=== PATIENT | female | born 2000 | race Caucasian/White ===

== ENCOUNTER → 2020-11-10 11:43 | Outpatient (CLI) | payer OTHER, SELFPAY ==
[2020-11-10 13:28] LABS: Hematocrit 36.9 % (37-47); Hemoglobin 12.4 g/dL (12.0-15.0); Mean Corp Hgb Conc 33.6 g/dL (32-36); Mean Corpuscular Hgb 30.8 pg (27.0-32.0); Mean Corpuscular Volume 91.8 fL (81-99); Mean Platelet Vol. 10.8 fl (6.2-12.0); Platelet Count 243 K/mm3 (150-450); RBC Distribution Width CV 12.8 % (11.6-14.6); RBC Distribution Width SD 42.8 fl (35.1-43.9); Red Blood Count 4.02 M/mm3 (4.2-5.4)
[2020-11-10 13:31] LABS: Glucose Challenge Gest 1H 50g 107 mg/dL (70-140)
== END ==
PROVIDERS: Visit Provider Student in an Organized Health Care Education/Training Program
DX: Z34.83 Encounter for supervision of other normal pregnancy, third trimester (principal)
CPT/HCPCS: 36415; 82950; 85027

== ENCOUNTER 2021-01-18 19:20 | Inpatient (IN) | payer OTHER, SELFPAY ==
[2021-01-18 19:47] VITALS: BMI 34.7
[2021-01-18 20:07] VITALS: TEMP 36.6
[2021-01-18 20:08] VITALS: BP 116/68; PULSE 109; PULSE 111; O2SAT 97
[2021-01-18 20:13] LABS: Absolute Lymphocyte Count 1.91 X10^3/uL (0.83-4.51); Absolute Neutrophil Count 6.2 X10^3/uL (2.0-7.7); Basophil# 0.01 X10^3/uL; Basophil% 0.1 % (0-1); Eosinophil# 0.03 X10^3/uL; Eosinophils% 0.3 % (0-5); Hematocrit 38.1 % (37-47); Hemoglobin 12.4 g/dL (12.0-15.0); Lymphocyte # 1.91 X10^3/ul (4.0); Lymphocyte % 21.6 % (19-41); Mean Corp Hgb Conc 32.5 g/dL (32-36); Mean Corpuscular Hgb 29.1 pg (27.0-32.0); Mean Corpuscular Volume 89.4 fL (81-99); Mean Platelet Vol. 10.4 fl (6.2-12.0); Monocyte# 0.64 X10^3/uL; Monocyte% 7.2 % (0-10); NRBC Flagged by Analyzer 0 % (0-5); Neutrophil % 70.2 % (47-70); Platelet Count 252 K/mm3 (150-450); RBC Distribution Width CV 12.9 % (11.6-14.6); RBC Distribution Width SD 41.9 fl (35.1-43.9); Red Blood Count 4.26 M/mm3 (4.2-5.4); White Blood Count 8.8 K/mm3 (4.4-11.0)
[2021-01-18] MEDS: Lactated Ringers 1,000 ML 50 ML IV (20:23)
[2021-01-18] MEDS: miSOPROStol 25 MCG TABLET VAGINAL (20:32)
[2021-01-18 21:04] VITALS: BP 102/53; PULSE 80
[2021-01-18 21:24] LABS: ROM Internal Control Test YES-OK TO RESULT pt. (Internal QC); ROM Patient Test Negative (Negative)
[2021-01-18 22:06] VITALS: BP 103/58; PULSE 81; TEMP 36.4; O2SAT 98
[2021-01-18 23:46] VITALS: BP 111/58; PULSE 71; TEMP 36.6
[2021-01-19] VITALS (43 sets, daily range): BP systolic 77–120; BP diastolic 40–70; PULSE 64–109; TEMP 36.3–37; O2SAT 89–100
[2021-01-19] MEDS: miSOPROStol 25 MCG TABLET VAGINAL (00:28)
[2021-01-19] MEDS: Lactated Ringers 500 ML 999 ML IV (04:24)
[2021-01-19] MEDS: Oxytocin 30 units/NS 500 ml 30 UNITS/500 ML IV.SOLN IV (06:56)
--- NOTE | 2021-01-19 07:12 | HP.PCM_ITS ---
History and Physical Date of Admission: 01/19/21 HPI: 20 yo at 39/5w, JUDY 01/21/21 by LMP, admitted for term induction of labor. Denies VB, contractions. +FM. This is complicated by: IBS (constipation), resolved IUGR, resolved choroid plexus cyst, two vessel cord Obstetrical History G1 Past Medical History IBS Medications PNV Past Surgical History Tonsillectomy Social History Tobacco use: denies Alcohol use: denies Illicit drug use: denies Labs Blood type: O pos Rubella: immune Hep B: neg HIV: neg RPR: nonreactive 1 hour GTT: wnl GBS: neg 12/31 Allergies NKDA Review of Systems General: alert and oriented HEENT: _denies change of vision Heart/lungs: _denies CP, SOB GI: _denies nausea, vomiting, dysuria, diarrhea MSK: _denies calf pain, tenderness Physical Exam Vital Signs Temp Pulse BP Pulse Ox 01/19/21 07:11 98.6 F 69 92/55 L 98 01/19/21 06:05 97.3 F L 84 107/68 01/19/21 06:04 73 97 01/19/21 05:59 77 96 01/19/21 05:54 76 96 01/19/21 05:49 100 96 01/19/21 05:44 73 97 01/19/21 05:35 72 97 01/19/21 05:30 81 97 01/19/21 05:25 68 98 01/19/21 05:20 73 98 01/19/21 05:15 75 97 01/19/21 05:10 76 98 01/19/21 05:05 74 98 01/19/21 05:00 68 98 01/19/21 04:55 80 98 01/19/21 04:50 75 97 01/19/21 04:45 91 97 01/19/21 04:40 78 97 01/19/21 04:35 77 98 01/19/21 04:32 78 120/59 L 01/19/21 04:30 109 H 98 01/19/21 04:25 68 98 01/19/21 01:32 64 98/49 L 01/18/21 23:46 97.8 F 71 111/58 L 01/18/21 22:06 97.5 F L 81 103/58 L 98 01/18/21 21:04 80 102/53 L 01/18/21 20:08 109 H 116/68 97 01/18/21 20:07 97.8 F General: a&o x3, NAD HEENT: normocephalic, atraumatic Cardio: no JVD Resp: no increased work in breathing Abdomen: soft, gravid, nontender Extremities: _minimal-moderate edema CE: cl/th/high FHT: 125/mod libertad/+accel/no decel [place]: irregular Labs Laboratory Results - last 24 hr 01/18/21 01/18/21 01/18/21 19:45 19:45 20:35 WBC 8.8 RBC 4.26 Hgb 12.4 Hct 38.1 MCV 89.4 MCH 29.1 MCHC 32.5 RDW Std Deviation 41.9 RDW Coeff of Libertad 12.9 Plt Count 252 MPV 10.4 Immature Gran % (Auto) 0.600 Neut % (Auto) 70.2 H Lymph % (Auto) 21.6 [place] % (Auto) 7.2 Eos % (Auto) 0.3 Baso % (Auto) 0.1 Absolute Neuts (auto) 6.2 Absolute Lymphs (auto) 1.91 Nucleated RBC % 0 Vag Amniotic Fld Detect Negative Blood Type O POSITIVE Antibody Screen NEGATIVE Assessment & Plan 20 yo at 39/5w, JUDY 01/21/21 by LMP, admitted for term induction of labor. This is complicated by: IBS (constipation), resolved IUGR, resolved choroid plexus cyst, two vessel cord Admit to L&D - Routine labor orders - Cytotec induction to start, transitioned to pitocin this morning due to contraction pattern - GBS neg - CEFM - Anesthesia to see - Cephalic position confirmed by BSUS this morning
[2021-01-19] MEDS: Lactated Ringers 1,000 ML 200 ML IV (07:37)
--- NOTE | 2021-01-19 18:13 | PCM.PN.BLA ---
Progress Note Pt seen and evaluated. Eating dinner with . Per RN last CE was 2 cm. FHR category I - 130/mod rozina/+accel/no decel, lore[place] q3. Patient is emotionally exhausted from induction being almost 24 hours. She asks about being able to go home and return next week for induction. Reports painful contractions and not being comfortable. Discussed that inductions can last several days, as discussed in the office previously, and that labor can be a long and painful process. Patient made aware that she is able to get an epidural at any time if she desired. Patient in latent labor at this time. Emphasized to patient that she has had made good progress over the last day. complicated by resolved growth restriction and two-vessel cord. Baby has tolerated labor well thus far. Long discussion had that the labor progress can be unpredictable and unknown how much longer she will be in labor before delivery. Discussed that there is no indication for section at this time unless she desired it. It is possible that she go home tonight and continue to labor on her own or that alternatively she return next week for induction at 2 cm without any cervical change. As heart tracing has been category 1 it is reasonable for patient to go home and return for induction next week. It is also reasonable to continue labor at this time. All questions answered. She and her will discuss and give decision after they are done eating. Okay for patient to shower. Will monitor for 4 hours without Pitocin prior to discharge if that is what she desires. Discussed with bedside RN as well. STROKE Vital Signs/Narrative: Vital Signs Temp Pulse BP Pulse Ox 01/19/21 17:46 68 101/57 L 01/19/21 16:46 76 112/62 01/19/21 15:27 97.7 F L 77 102/56 L 97
[2021-01-20] VITALS (79 sets, daily range): BP systolic 75–127; BP diastolic 39–79; PULSE 62–133; RESP 16–19; TEMP 36.2–37.2; O2SAT 95–100
[2021-01-20] MEDS: Lactated Ringers 500 ML 999 ML IV ×4 (00:20→04:31)
[2021-01-20] MEDS: fentaNYL-bupivacaine (epidural) 100 ML BAG EPIDURAL ×2 (01:12→05:57)
[2021-01-20] MEDS: Lactated Ringers 1,000 ML 200 ML IV (02:03)
--- NOTE | 2021-01-20 12:02 | OP.PCM_ITS ---
Vaginal Delivery Date of Procedure: 01/20/21 Pre-Operative Diagnosis: Term Post-Operative Diagnosis: Term Surgery/ Procedure Performed: Spontaneous Vaginal Delivery Type of Anesthesia: Epidural Description of Procedure: Normal spontaneous vaginal delivery of a viable male infant, vertex ELSY. Head and shoulders look with ease. Cord cut and clamped. Baby handed off to nursing. Placenta delivered via cord traction and fundal massage. Second- degree midline perineal laceration and right periurethral laceration noted and repaired in typical fashion. EBL 300 cc Apgars 9/9
--- NOTE | 2021-01-20 12:04 | DCINST_ITS ---
Discharge Diet: No Restrictions Discharge Activity: Return to Normal Activity, No Restrictions, May Drive, May Shower May resume sexual activity in: 4-6 weeks Weight Bearing Status: Weight bearing as tolerated Call your doctor if your incision/area has: Continuous Slow Oozing, Foul Smelling Discharge Call your doctor if you observe: Fever of 101 or Higher, Shortness of breath, Chest pain Additional Instructions: If you experience any of the following, contact your healthcare provider. * Bleeding that soaks a pad every hour for 2 hours * Fever 100.4 or higher * Unrelieved incision or abdominal pain * Swelling, redness, discharge or bleeding from your incision or episiotomy site * Your incision begins to separate * Problems urinating (including inability to urinate or burning while urinating). * Visual changes * Severe headache * Flu-like symptoms * Pain or redness in one of both of your breasts * Pain, warmth, tenderness or swelling in your legs, especially the calf area * Frequent nausea and vomiting * Symptoms of depression or anxiety If you experience any of the following, call 911 or go to the nearest Emergency Room. * Chest pain * Problems breathing * Seizure activity * Partial or complete paralysis of a body part, slurred speech, weakness or drooping of the face, or a sudden inability to walk or hold your balance Allergies/Adverse Reactions: Allergies No Known Allergies Allergy (Verified 01/18/21 19:51) Medications to take at Discharge Mv-Mn/Iron/FA/Herbal/Digestive [ One Tablet] 1 tablet PO DAILY 01/18/21 Please Follow Up With: Fela Li DO When: 4 to 6 weeks Test Results: Test results from this visit will be discussed in further detail at your follow- up appointment, if applicable.
--- NOTE | 2021-01-20 12:04 | PCM.DCVAG ---
Discharge Diet: No Restrictions Discharge Activity: Return to Normal Activity, No Restrictions, May Drive, May Shower May resume sexual activity in: 4-6 weeks Weight Bearing Status: Weight bearing as tolerated Call your doctor if your incision/area has: Continuous Slow Oozing, Foul Smelling Discharge Call your doctor if you observe: Fever of 101 or Higher, Shortness of breath, Chest pain Additional Instructions: If you experience any of the following, contact your healthcare provider. Bleeding that soaks a pad every hour for 2 hours Fever 100.4 or higher Unrelieved incision or abdominal pain Swelling, redness, discharge or bleeding from your incision or episiotomy site Your incision begins to separate Problems urinating (including inability to urinate or burning while urinating). Visual changes Severe headache Flu-like symptoms Pain or redness in one of both of your breasts Pain, warmth, tenderness or swelling in your legs, especially the calf area Frequent nausea and vomiting Symptoms of depression or anxiety If you experience any of the following, call 911 or go to the nearest Emergency Room. Chest pain Problems breathing Seizure activity Partial or complete paralysis of a body part, slurred speech, weakness or drooping of the face, or a sudden inability to walk or hold your balance Allergies/Adverse Reactions: Allergies No Known Allergies Allergy (Verified 01/18/21 19:51) Medications to take at Discharge Mv-Mn/Iron/FA/Herbal/Digestive [ One Tablet] 1 tablet PO DAILY 01/18/21 Please Follow Up With: Fela Li DO When: 4 to 6 weeks Test Results: Test results from this visit will be discussed in further detail at your follow-up appointment, if applicable.
[2021-01-20] MEDS: Ibuprofen 600 MG Tablet PO (13:15)
[2021-01-20] MEDS: Acetaminophen 500 MG Tablet 1000 MG PO (21:38)
[2021-01-21 00:08] VITALS: BP 99/58; PULSE 91; RESP 18; O2SAT 96
[2021-01-21] MEDS: Ibuprofen 600 MG Tablet PO (00:11)
[2021-01-21 03:56] VITALS: BP 97/45; PULSE 65; RESP 16
[2021-01-21] MEDS: Acetaminophen 500 MG Tablet 1000 MG PO (04:24)
[2021-01-21] MEDS: oxyCODONE 5 MG Tablet PO (04:46)
[2021-01-21 07:55] VITALS: BP 107/54; PULSE 79; RESP 18; TEMP 36.1
--- NOTE | 2021-01-21 09:00 | PCM.PN.OB ---
Subjective: Patient without complaints. Minimal vaginal bleeding reported today. Wants to go home if baby is able to go. - Physical Exam Vitals/I&O's: Vital Signs Temp Pulse Resp BP Pulse Ox 98.4 F 65 16 97/45 L 96 01/20/21 21:40 01/21/21 03:56 01/21/21 03:56 01/21/21 03:56 01/21/21 00:08 Oxygen Delivery Method Room Air Weight: 201 lb 15.095 oz Body Mass Index (BMI) 34.7 Intake and Output for Last 24 Hours 01/19/21 01/20/21 01/21/21 23:59 23:59 23:59 Intake Total 3065.97 / 3065.97 4007.44 / 4007.44 Output Total 2300 / 2300 2500 / 2500 Balance 765.97 / 765.97 1507.44 / 1507.44 Current Medications Acetaminophen (Acetaminophen 500 Mg Tablet) 1,000 mg PO Q8H PRN PRN PRN Reason: Pain Score 1-3 Last Admin: 01/21/21 04:24 Dose: 1,000 mg Documented by: Bisacodyl (Bisacodyl 10 Mg Suppository) 10 mg RC UD PRN PRN Reason: If no BM Dibucaine (Dibucaine 30 Gm Tube) 1 applic TOPICAL TID PRN PRN; Protocol PRN Reason: Discomfort Hydrocortisone (Hydrocortisone 2.5% Crm) 1 applic TOPICAL TID PRN PRN; Protocol PRN Reason: Discomfort Ibuprofen (Ibuprofen 600 Mg Tablet) 600 mg PO Q6H PRN PRN PRN Reason: Pain Score 1-3 Last Admin: 01/21/21 00:11 Dose: 600 mg Documented by: Ondansetron HCl (Ondansetron 4 Mg/2 Ml Vial) 4 mg IV Q4H PRN PRN PRN Reason: Nausea Senna/Docusate Sodium (Senna/Docusate Sodium 1 Tablet) 1 - 2 tablet PO DAILY PRN PRN PRN Reason: Constipation Simethicone (Simethicone 80 Mg Tablet) 80 mg PO PCHS PRN PRN Reason: Indigestion/Stomach pain Sodium Chloride (0.9% Saline Lock 10 Ml Syringe) 5 - 15 ml IV UD PRN PRN Reason: SALINE FLUSH Zolpidem Tartrate (Zolpidem Tartrate 5 Mg Tablet) 5 mg PO QHS PRN PRN PRN Reason: Insomnia Medical Necessity - Tobacco Use Smoking Status: Never smoker Assessment/Plan Doing well day #1 status post routine spontaneous vaginal delivery. Will discharge to home if baby is able to go.
[2021-01-21 14:00] VITALS: BP 108/60; PULSE 77; RESP 16; TEMP 36.2
== END 2021-01-21 16:45 | disposition home or self-care (01) | DRG 807 ==
PROVIDERS: Student in an Organized Health Care Education/Training Program; Admitting Provider Obstetrics & Gynecology; Visit Provider Obstetrics & Gynecology
DX: O99.62 Diseases of the digestive system complicating childbirth (principal); Z37.0 Single live birth; K58.1 Irritable bowel syndrome with constipation; O70.1 Second degree perineal laceration during delivery; O71.82 Other specified trauma to perineum and vulva; Z3A.39 39 weeks gestation of pregnancy
CPT/HCPCS: 59025; 59050; 84112; 85025; 86850; 86900; 86901; 99218; J7120; G0378

== ENCOUNTER → 2021-05-11 14:18 | Outpatient (CLI) | payer OTHER, SELFPAY ==
[2021-05-11 15:26] LABS: hCG Titer Quant., Serum < 1 mIU/mL (1-3)
== END ==
PROVIDERS: Visit Provider Obstetrics & Gynecology
DX: N91.2 Amenorrhea, unspecified (principal)
CPT/HCPCS: 36415; 84702

== ENCOUNTER 2021-11-27 11:59 | Outpatient (CLI) | payer OTHER, SELFPAY ==
[2021-11-27 12:31] LABS: Absolute Lymphocyte Count 2.27 X10^3/uL (0.83-4.51); Absolute Neutrophil Count 5.9 X10^3/uL (2.0-7.7); Basophil# 0.03 X10^3/uL; Basophil% 0.3 % (0-1); Eosinophil# 0.04 X10^3/uL; Eosinophils% 0.5 % (0-5); Hematocrit 44.8 % (37-47); Hemoglobin 15.6 g/dL (12.0-15.0); Lymphocyte # 2.27 X10^3/ul (0.83-4.51); Lymphocyte % 26.1 % (19-41); Mean Corp Hgb Conc 34.8 g/dL (32-36); Mean Corpuscular Hgb 30.5 pg (27.0-32.0); Mean Corpuscular Volume 87.7 fL (81-99); Monocyte# 0.45 X10^3/uL; Monocyte% 5.2 % (0-10); NRBC Flagged by Analyzer 0 % (0-5); Neutrophil # 5.86 X10^3/uL (2.7-7.7); Neutrophil % 67.4 % (47-70); POSITIVE COUNT YES; Platelet Count 228 K/mm3 (150-450); RBC Distribution Width CV 12.9 % (11.6-14.6); RBC Distribution Width SD 41.7 fl (35.1-43.9); Red Blood Count 5.11 M/mm3 (4.2-5.4); White Blood Count 8.7 K/mm3 (4.4-11.0)
[2021-11-27 13:29] LABS: HIV - WCH Non-Reactive (Nonreactive); Hepatitis B Surface Antigen Non-Reactive (Nonreactive); Hepatitis C Antibody Non-Reactive (Nonreactive); Rubella IgG Reactive (Nonreactive); Syphilis Antibodies Non-reactive
[2021-12-01 17:01] LABS: HPV Reflexed? NOT INDICATED
== END 2021-11-27 23:59 | disposition home or self-care (01) ==
PROVIDERS: Visit Provider Student in an Organized Health Care Education/Training Program
DX: O23.599 Infection of other part of genital tract in pregnancy, unspecified trimester (principal); N77.1 Vaginitis, vulvitis and vulvovaginitis in diseases classified elsewhere
CPT/HCPCS: 36415; 85025; 86703; 86762; 86780; 86803; 87086; 87088; 87340; 88175; G0145

== ENCOUNTER 2022-01-26 15:17 | Outpatient (CLI) | payer OTHER, BC, SELFPAY ==
[2022-01-26 16:21] LABS: Glucose Challenge Gest 1H 50g 116 mg/dL (70-140)
== END 2022-01-26 23:59 | disposition home or self-care (01) ==
PROVIDERS: Visit Provider Student in an Organized Health Care Education/Training Program
DX: Z34.81 Encounter for supervision of other normal pregnancy, first trimester (principal)
CPT/HCPCS: 36415; 82950

== ENCOUNTER → 2022-02-15 | Outpatient (CLI) | payer BC, OTHER, SELFPAY | END | disposition home or self-care (01) | PROVIDERS: Visit Provider Student in an Organized Health Care Education/Training Program | DX: Z34.82 Encounter for supervision of other normal pregnancy, second trimester (principal); O99.891 Other specified diseases and conditions complicating pregnancy; N77.1 Vaginitis, vulvitis and vulvovaginitis in diseases classified elsewhere ==

== ENCOUNTER → 2022-04-29 | Outpatient (CLI) | payer BC, OTHER, SELFPAY ==
[2022-04-29 12:52] LABS: Hematocrit 38.4 % (37-47); Hemoglobin 12.6 g/dL (12.0-15.0); Mean Corp Hgb Conc 32.8 g/dL (32-36); Mean Corpuscular Hgb 30.5 pg (27.0-32.0); Mean Platelet Vol. 11.7 fl (6.2-12.0); Platelet Count 199 K/mm3 (150-450); RBC Distribution Width CV 13.1 % (11.6-14.6); RBC Distribution Width SD 44.8 fl (35.1-43.9); Red Blood Count 4.13 M/mm3 (4.2-5.4)
[2022-04-29 13:01] LABS: Glucose Challenge Gest 1H 50g 85 mg/dL (70-140)
== END | disposition home or self-care (01) ==
PROVIDERS: Visit Provider Student in an Organized Health Care Education/Training Program
DX: Z34.83 Encounter for supervision of other normal pregnancy, third trimester (principal); Z3A.00 Weeks of gestation of pregnancy not specified
CPT/HCPCS: 36415; 82950; 85027

== ENCOUNTER → 2022-05-13 | Outpatient (CLI) | payer BC, OTHER, SELFPAY ==
[2022-05-13 14:31] LABS: Hematocrit 37.8 % (37-47); Hemoglobin 13.2 g/dL (12.0-15.0); Mean Corp Hgb Conc 34.9 g/dL (32-36); Mean Corpuscular Hgb 31.4 pg (27.0-32.0); Mean Corpuscular Volume 89.8 fL (81-99); Mean Platelet Vol. 10.2 fl (6.2-12.0); Platelet Count 231 K/mm3 (150-450); RBC Distribution Width CV 12.7 % (11.6-14.6); RBC Distribution Width SD 41.5 fl (35.1-43.9); Red Blood Count 4.21 M/mm3 (4.2-5.4); White Blood Count 9.1 K/mm3 (4.4-11.0)
[2022-05-13 17:08] LABS: ALB/GLOB Ratio 0.7 RATIO (0.9-2.4); AST(SGOT) 15 U/L (15-37); Alanine Aminotransfer ALT/SGPT 17 U/L (13-56); Albumin, Serum 2.9 g/dL (3.2-5.0); Alkaline Phosphatase 99 U/L (45-117); Anion Gap 6 (5-15); BUN 7 mg/dL (7-18); BUN/Creat Ratio 11.9 RATIO (10-20); Calcium,Total 8.7 mg/dL (8.5-10.1); Chloride 105 mmol/L (98-107); Creatinine, Serum 0.59 mg/dL (0.55-1.02); EST Glomerular Filtration Rate 137 mL/min (>60); Est Glom Filt Rate - Afr Amer 165 mL/min (>60); Globulin 3.9 g/dL (2.2-4.2); Glucose 79 mg/dL (74-106); Lipase 173 U/L (73-393); Potassium 3.9 mmol/L (3.5-5.1); Protein, Total 6.8 g/dL (6.4-8.2); Sodium Level 136 mmol/L (136-145)
== END | disposition home or self-care (01) ==
LOC: WOBLAB 14:19
PROVIDERS: Visit Provider Student in an Organized Health Care Education/Training Program
DX: R10.9 Unspecified abdominal pain (principal)
CPT/HCPCS: 36415; 80053; 83690; 85027

== ENCOUNTER → 2022-07-02 | Outpatient (CLI) | payer BC, OTHER, SELFPAY ==
[2022-07-02 15:41] LABS: Absolute Lymphocyte Count 1.98 X10^3/uL (0.83-4.51); Absolute Neutrophil Count 7.4 X10^3/uL (2.0-7.7); Basophil# 0.03 X10^3/uL; Basophil% 0.3 % (0-1); Eosinophil# 0.04 X10^3/uL; Eosinophils% 0.4 % (0-5); Hemoglobin 12.5 g/dL (12.0-15.0); Lymphocyte # 1.98 X10^3/ul (0.83-4.51); Lymphocyte % 19.1 % (19-41); Mean Corp Hgb Conc 33.8 g/dL (32-36); Mean Corpuscular Hgb 30.2 pg (27.0-32.0); Mean Corpuscular Volume 89.4 fL (81-99); Mean Platelet Vol. 10.1 fl (6.2-12.0); Monocyte# 0.78 X10^3/uL; Monocyte% 7.5 % (0-10); NRBC Flagged by Analyzer 0 % (0-5); Neutrophil # 7.44 X10^3/uL (2.7-7.7); Platelet Count 215 K/mm3 (150-450); RBC Distribution Width CV 12.7 % (11.6-14.6); RBC Distribution Width SD 41.4 fl (35.1-43.9); Red Blood Count 4.14 M/mm3 (4.2-5.4); White Blood Count 10.3 K/mm3 (4.4-11.0)
[2022-07-02 15:55] LABS: Creatinine, Urine (random) < 13.00 mg/dL (NO RANGE EST.); Protein, Urine (Random) < 6.0 mg/dL (<11.9)
[2022-07-02 15:57] LABS: ALB/GLOB Ratio 0.6 RATIO (0.9-2.4); AST(SGOT) 12 U/L (15-37); Alanine Aminotransfer ALT/SGPT 15 U/L (13-56); Albumin, Serum 2.6 g/dL (3.2-5.0); Alkaline Phosphatase 169 U/L (45-117); Anion Gap 8 (5-15); BUN 8 mg/dL (7-18); Calcium,Total 8.6 mg/dL (8.5-10.1); Chloride 107 mmol/L (98-107); Creatinine, Serum 0.67 mg/dL (0.55-1.02); EST Glomerular Filtration Rate 118 mL/min (>60); Est Glom Filt Rate - Afr Amer 143 mL/min (>60); Glucose 107 mg/dL (74-106); LDH 162 U/L (84-246); Potassium 3.7 mmol/L (3.5-5.1); Protein, Total 6.6 g/dL (6.4-8.2); Sodium Level 138 mmol/L (136-145)
== END | disposition home or self-care (01) ==
LOC: WOBLAB 15:20
PROVIDERS: Visit Provider Student in an Organized Health Care Education/Training Program
DX: R10.11 Right upper quadrant pain (principal)
CPT/HCPCS: 36415; 80053; 82570; 83615; 84156; 85025; 87081; 87086; 87088

== ENCOUNTER 2022-07-09 16:10 | Outpatient (CLI) | payer BC, OTHER, SELFPAY ==
[2022-07-09 16:41] VITALS: BP 120/67; PULSE 73; PULSE 77; TEMP 36.3; O2SAT 98
[2022-07-09 16:43] VITALS: BMI 36.8
[2022-07-09] MEDS: Lactated Ringers 1,000 ML 999 ML IV (17:40)
[2022-07-09 18:31] VITALS: PULSE 99; O2SAT 100
[2022-07-09 18:32] VITALS: BP 112/73; PULSE 82; TEMP 36.5
--- NOTE | 2022-07-09 18:52 | NURSING ---
Pt lives 3 hours from hospital, encouraged by provider to stay closer tonight if pt uneasy about going home. Pt plans to stay in [place] at in laws house.
--- NOTE | 2022-07-10 09:35 | PN_ITS ---
Progress Note 21-year-old G2, P1 at 37/6 weeks presenting for decreased movement for extended monitoring. Patient had been seen in office prior reported decreased movement for 1 week. Still having some movements but decreased. Had BPP in the office which was 8 out of 8. Patient anxious therefore sent to labor and delivery for extended monitoring. Patient received 1 L LR bolus during monitoring. Per RN, RN felt movement as did patient during monitoring. monitoring reassuring with reactive NST. 120/moderate variability/positive accelerations/no decelerations. [place] irregular. Patient did have some menstrual cramps like discomfort rating 1 out of 10. She was 3 cm dilated in office. Patient lives 3 hours from hospital. Recommended staying in town or closer to hospital for the next 1 to 2 days. To return for decreased movement, more consistent contractions, increasing in strength, leaking of fluid. Kick counts reviewed. Patient has term induction of labor scheduled on 08/15. She has twice-weekly testing scheduled next week with NST on Tuesday and a BPP on . Discharge home.
== END 2022-07-09 18:55 | disposition home or self-care (01) ==
LOC: WPOUT 16:20 → WP 16:30
PROVIDERS: Visit Provider Student in an Organized Health Care Education/Training Program
DX: O36.8130 Decreased fetal movements, third trimester, not applicable or unspecified (principal); Z3A.37 37 weeks gestation of pregnancy
CPT/HCPCS: 96360; 59025; 59050; 99218; J7120; G0378

== ENCOUNTER 2022-07-11 17:00 | Inpatient (IN) | payer BC, OTHER, SELFPAY ==
[2022-07-11] VITALS (38 sets, daily range): BP systolic 86–130; BP diastolic 50–80; PULSE 67–125; TEMP 36.1–36.9; O2SAT 95–100; BMI 37.0
[2022-07-11] MEDS: Lactated Ringers 1,000 ML 200 ML IV ×2 (17:15→22:53)
[2022-07-11 17:29] LABS: Absolute Lymphocyte Count 2.81 X10^3/uL (0.83-4.51); Absolute Neutrophil Count 5.4 X10^3/uL (2.0-7.7); Basophil# 0.02 X10^3/uL; Basophil% 0.2 % (0-1); Eosinophil# 0.04 X10^3/uL; Eosinophils% 0.5 % (0-5); Hematocrit 35.9 % (37-47); Hemoglobin 11.9 g/dL (12.0-15.0); Lymphocyte # 2.81 X10^3/ul (0.83-4.51); Lymphocyte % 31.8 % (19-41); Mean Corp Hgb Conc 33.1 g/dL (32-36); Mean Corpuscular Hgb 29.3 pg (27.0-32.0); Mean Corpuscular Volume 88.4 fL (81-99); Mean Platelet Vol. 10.7 fl (6.2-12.0); Monocyte# 0.53 X10^3/uL; NRBC Flagged by Analyzer 0 % (0-5); Platelet Count 230 K/mm3 (150-450); RBC Distribution Width CV 12.6 % (11.6-14.6); RBC Distribution Width SD 40.9 fl (35.1-43.9); Red Blood Count 4.06 M/mm3 (4.2-5.4); White Blood Count 8.8 K/mm3 (4.4-11.0)
[2022-07-11] MEDS: Oxytocin 30 units/NS 500 ml 30 UNITS/500 ML IV.SOLN IV (17:34)
--- NOTE | 2022-07-11 20:05 | HP.PCM.OB_ITS ---
History and Physical Date of Admission: 07/11/22 HPI: 21 yo at 38/1w, JUDY 07/24/2022 by first trimester ultrasound, admitted for induction of labor. Reports decreased movement for 1 week, acute change. Does feel approximately once daily in the evening. Had reassuring testing on Tuesday of this week. Today presented with same complaint, no change. NST with accelerations, large periods of minimal variability, no decelerations. Patient did make cervical change to 4 cm from 3 cm on Tuesday. Denies leaking of fluid, vaginal bleeding. Reports contractions. Denies headache, vision changes, chest pain or shortness of breath, fevers or chills, nausea or vomiting, diarrhea constipation. uncomplicated. EFW on 06/10/22: 2670g (87.6%tile) [employer] history: G1: 2020 40-week , resolved growth restriction G2: Current Medical history: Denies Surgical history: Denies Family history: Denies history of VTE, bleeding disorders Allergies: No known drug allergies Social history: Denies tobacco, alcohol, drug use Review of system: Negative otherwise stated above Physical exam: BP 105/57, heart rate 67, temp 98.2 ?F General: No acute distress HEENT: Normocephalic/atraumatic, PERRLA Cardiorespiratory: No increased effort Abdomen: Soft, nontender, Gravid extremity: Minimal edema Neurologic: Cranial nerves II through XII grossly intact, no focal deficits Musculoskeletal: Strength 5 out of 5 throughout all extremities Cervical exam: 4 cm per RN on admission, AROM large amount of clear fluid 4/60/- 2 heart rate: 115/min rozina/+accel/no decel [place]: q3-5 panel O+ GBS negative on 07/02 Syphilis negative HIV negative Hepatitis C/hepatitis B negative Gonorrhea/chlamydia negative Assessment/plan: 21-year-old G2, P1 at 38/1 weeks, admitted for induction of labor for nonreassuring heart tones. ?Patient is early term with new onset decreased movement for 1 week. heart rate tracing noting accelerations and no decelerations, however notable for extended periods of minimal variability. Additionally patient did make cervical change from 3 to 4 cm. Based on these factors decision for induction of labor at early term was made. Risks and benefits discussed with the patient. Risks include but are not limited to: Possible NICU stay, difficulty with glucose regulation for baby. Patient agrees to induction of labor. All questions answered. Patient in room with partner. ?Induction with Pitocin and AROM. GBS is negative.
[2022-07-11] MEDS: LACTATED RINGERS 500 ML 999 ML IV ×2 (22:22→23:29)
[2022-07-11] MEDS: fentaNYL-bupivacaine (epidural) 100 ML BAG EPIDURAL (23:14)
[2022-07-12] VITALS (40 sets, daily range): BP systolic 85–111; BP diastolic 40–72; PULSE 56–106; RESP 16–20; TEMP 36–37.2; O2SAT 93–100
[2022-07-12] MEDS: LACTATED RINGERS 500 ML 999 ML IV ×2 (00:26→01:53)
[2022-07-12] MEDS: Mag Hydrox/Al Hydrox/Simeth 30 ML UDC PO (01:18)
[2022-07-12] MEDS: Ondansetron 4 MG/2 ML Vial IV (02:53)
[2022-07-12] MEDS: Amnioinfusion- 0.9% NS 1,000 ML IV.SOLN. INTRA-UTER (03:05)
[2022-07-12] MEDS: fentaNYL-bupivacaine (epidural) 100 ML BAG EPIDURAL (03:20)
[2022-07-12] MEDS: Sodium Citrate/Citric Acid 30 ML UDC PO (04:21)
[2022-07-12] MEDS: Acetaminophen 500 MG Tablet PO (04:22)
--- NOTE | 2022-07-12 04:26 | PN.OBGYN_ITS ---
Subjective Subjective Patient seen and evaluated. Comfortable with epidural. Having emesis. Objective Data Objective Data Vital Signs: Vital Signs Temp Pulse Resp BP Pulse Ox O2 Del Method 98.6 F 102 H 18 90/49 L 99 Room Air 07/12/22 04:16 07/12/22 04:16 07/12/22 04:16 07/12/22 04:16 07/12/22 04:16 07/12/22 04:16 Oxygen Delivery Method Room Air Weight: 97.9 kg Body Mass Index (BMI) 37.0 Intake & Output: Intake and Output for Last 24 Hours 07/10/22 07/11/22 07/12/22 23:59 23:59 23:59 Intake Total 1646.57 / 2146.57 1814.89 / 1814.89 Output Total 1200 / 1200 1190 / 1190 Balance 446.57 / 946.57 624.89 / 624.89 Lab / Micro Data Result Diagrams: 07/11/22 17:15 Labs: Laboratory Results - last 24 hr 07/11/22 17:15: WBC 8.8, RBC 4.06 L, Hgb 11.9 L, Hct 35.9 L, MCV 88.4, MCH 29.3, MCHC 33.1, RDW Std Deviation 40.9, RDW Coeff of Libertad 12.6, Plt Count 230, MPV 10.7, Immature Gran % (Auto) 0.500, Neut % (Auto) 61.0, Lymph % (Auto) 31.8, [place] % (Auto) 6.0, Eos % (Auto) 0.5, Baso % (Auto) 0.2, Absolute Neuts (auto) 5.4, Absolute Lymphs (auto) 2.81, Nucleated RBC % 0 07/11/22 17:15: Blood Type O POSITIVE, Antibody Screen NEGATIVE Micro: Microbiology 07/11/22 17:10 Nasal Secretion SARS-CoV-2 Antigen (Rapid) - Final Physical Exam Const alert, oriented x3 and no apparent distress Resp normal respiratory effort Cardio regular rate GI soft to palpation and non-tender Inspection: gravid Narrative: 4-5/70/-2 Extremity no pedal edema Psych mental status grossly normal NST FHR Rate Baby A Baseline: 110 Variability:: Minimal Accelerations:: 15 x 15 Decelerations:: Late Assessment & Plan (1) intolerance to labor, delivered, current hospitalization: PLAN: G2, P1 at 38/2 weeks.Patient had minimal variability with late decelerations, response to scalp stimulation. Pitocin had been stopped and amnioinfusion had been started. Following amnioinfusion variability improved for approximately 10 minutes, followed by minimal variability. Patient had accelerations with improved moderate variability at around 0400, response to scalp stimulation. Minimal change in cervical exam. Discussed options at that time for continued trial of labor as variability had been improved versus section. Discussed that if baby did not tolerate restarting Pitocin, this would likely require section at that time. Patient elects for section. All risk, benefits, alternatives were discussed with the patient. Risks include but are not limited to: Risk of bleeding to the point of transfusion, infection, injury to surrounding tissue including bowel/bladder (requiring prolonged Leiva catheter use), VTE, ICU admission. Patient aware and consented. All questions answered. 2 g Ancef and 500 mg azithromycin preoperatively. Proceed in an urgent, nonemergent fashion. (2) Delivery by section:
[2022-07-12] MEDS: Cefazolin 2 GM in 0.9% Normal Saline 100 ML IV (04:30)
--- NOTE | 2022-07-12 05:14 | EX.PCM.OBRPT ---
Details Operative Information Date of Procedure: 07/12/22 Pre-Operative Diagnosis: Agarwal intrauterine . intolerance of labor. Post-Operative Diagnosis: Agarwal intrauterine . intolerance of labor. Indications Narrative: 21-year-old G2, P1 at 38/2 weeks plan for primary section for intolerance of labor. All risk, benefits, alternative discussed with the patient. Risk include but not limited to: Risk of bleeding twin transfusion, infection, injury to surrounding tissue including bowel/bladder (potentially requiring prolonged Leiva catheter use), VTE, ICU admission. Patient were consented. Classification: KERRI Procedure Type: low transverse Type of Anesthesia: Epidural Estimated Blood Loss: 700 cc Fluids Replaced: 1000 cc Findings Description of Procedure: Procedure: Patient taken to the operating room and epidural anesthesia dose. Patient placed in the supine position with a left lateral tilt. Prepped and draped in the usual sterile fashion. Pfannenstiel skin incision made with scalpel, carried through underlying subcutaneous tissue. Fascia nicked on either side of the midline and extended bilaterally with Boykin scissors. Murali clamps placed at the superior fascial edge which was tented up and underlying rectus muscles were dissected off bluntly and sharply at midline using Boykin scissors. Murali clamps moved to inferior fascial edge which was tented up underlying rectus ulcers were dissected off bluntly and sharply at midline. Hemostats used to separate rectus muscle superiorly, peritoneum grasped and incised with Metzenbaum scissors. Peritoneum extended bluntly. Bladder blade placed vesicouterine peritoneum identified. Low transverse uterine incision made with scalpel and extended bluntly. Hand placed into the uterine cavity and head elevated to the level of the hysterotomy. Bladder blade removed. Head delivered followed by the body with the use of gentle fundal pressure. No nuchal cord. Cord clamped and cut. Baby did nursing. Manual extraction of placenta. Uterus exteriorized and cleared of all clots. Hysterotomy closed with a run locking stitch. This was followed by second horizontal imbricating stitch. Area of serosal abrasion at left hysterotomy edge reapproximated with 1 interrupted stitch, hemostatic with Bovie. Uterus replaced into the abdominal cavity. Crys placed on the serosal edge and hysterotomy. Hemostatic. Peritoneum reapproximated with a running stitch. Fascia closed with a running stitch. Subcutaneous tissue reapproximated with suture. Skin closed with a running subcuticular stitch. At the end of the procedure all needle, lap, sponge counts were correct. Urine output: 200 cc clear urine Cord Gases: ABG Infant A Gender: Female (1 minute): 8 (5 minute): 9
[2022-07-12] MEDS: Oxytocin 30 units/NS 500 ml 30 UNITS/500 ML IV.SOLN 167 UNITS IV (05:52)
[2022-07-12] MEDS: Ketorolac 30 MG/ML Syringe IV ×4 (06:43→23:45)
--- NOTE | 2022-07-12 07:10 | NURSING ---
bedside report given to Rao Jama RN who is assuming care of pt at this time
[2022-07-12] MEDS: Lactated Ringers 1,000 ML 100 ML IV (08:59)
[2022-07-12] MEDS: Acetaminophen 500 MG Tablet 1000 MG PO ×3 (10:54→23:03)
[2022-07-12] MEDS: Senna/Docusate Sodium 1 Tablet PO (10:54)
[2022-07-12] MEDS: 0.9% Saline Lock 10 ML Syringe IV ×3 (12:05→23:45)
[2022-07-12] MEDS: Enoxaparin 40 MG/0.4 ML Syringe SC (17:05)
[2022-07-12] MEDS: FLUoxetine 20 MG Capsule PO (22:22)
[2022-07-13 00:15] VITALS: BP 104/46; PULSE 74; RESP 15; TEMP 36.7
[2022-07-13 04:45] VITALS: BP 105/68; PULSE 70; RESP 15; TEMP 36.1
[2022-07-13] MEDS: Acetaminophen 500 MG Tablet 1000 MG PO ×2 (04:57→10:48)
[2022-07-13 05:04] LABS: Hematocrit 30.3 % (37-47); Mean Corpuscular Hgb 29.5 pg (27.0-32.0); Mean Corpuscular Volume 89.4 fL (81-99); Mean Platelet Vol. 10.3 fl (6.2-12.0); Platelet Count 184 K/mm3 (150-450); RBC Distribution Width SD 42.1 fl (35.1-43.9); Red Blood Count 3.39 M/mm3 (4.2-5.4); White Blood Count 10.2 K/mm3 (4.4-11.0)
[2022-07-13] MEDS: Ibuprofen 600 MG Tablet PO ×2 (06:08→12:58)
[2022-07-13 07:36] VITALS: BP 118/73; PULSE 55; RESP 16; TEMP 36.2; O2SAT 96
--- NOTE | 2022-07-13 08:13 | PCM.PN.OB ---
Subjective Subjective Pain controlled. Lochia minimal. Breast-feeding. Objective Data Objective Data Vital Signs: Vital Signs Temp Pulse Resp BP Pulse Ox O2 Del Method 97.1 F L 55 L 16 118/73 96 Room Air 07/13/22 07:36 07/13/22 07:36 07/13/22 07:36 07/13/22 07:36 07/13/22 07:36 07/13/22 07:36 Oxygen Delivery Method Room Air Weight: 97.9 kg Body Mass Index (BMI) 37.0 Intake & Output: Intake and Output for Last 24 Hours 07/11/22 07/12/22 07/13/22 23:59 23:59 23:59 Intake Total 1646.57 / 2146.57 6796.55 / 6796.55 Output Total 1200 / 1200 2990 / 2990 Balance 446.57 / 946.57 3806.55 / 3806.55 Lab / Micro Data Result Diagrams: 07/13/22 04:52 Labs: Laboratory Results - last 24 hr 07/13/22 04:52: WBC 10.2, RBC 3.39 L, Hgb 10.0 L, Hct 30.3 L, MCV 89.4, MCH 29.5, MCHC 33.0, RDW Std Deviation 42.1, RDW Coeff of Libertad 13.0, Plt Count 184, MPV 10.3 Micro: Microbiology 07/11/22 17:10 Nasal Secretion SARS-CoV-2 Antigen (Rapid) - Final Physical Exam Const alert, oriented x3 and no apparent distress HEENT normocephalic Head and Scalp: atraumatic Neck full ROM Resp normal respiratory effort Cardio regular rate GI normal to inspection, nondistended, normoactive bowel sounds GI Narrative: Uterus 2 cm below umbilicus, dressing clean and dry Back/Spine normal ROM Extremity normal to inspection Extremity Narrative: Minimal pedal edema Neuro no focal motor deficits and no sensory deficits noted Psych mental status grossly normal and affect normal Assessment & Plan (1) Delivery by section: PLAN: Postop day 1 status post primary section. Acute blood loss anemia secondary to surgery. Iron supplement on home-going. Home today. Follow-up 2 weeks postop and 6 weeks .
--- NOTE | 2022-07-13 08:14 | DCINST_ITS ---
Discharge Instructions Diet Discharge Diet: No restrictions Activity Discharge Activity: Return to Normal Activity and May Shower May resume sexual activity in: 4-6 weeks Weight Bearing Status: Weight bearing as tolerated Lifting Restrictions: No greater than 25 pounds Dressing / Incision Call your doctor if your incision/area has: Continuous Slow Oozing, Increased Redness and Swelling at the incision site Call your doctor if you observe: Fever of 101 or Higher, Change in Color, Inability to urinate, Using more than 1 pad per hour, Shortness of breath, Dizziness, Swelling in the ankles, Chest pain and Calf discomfort Remove Dressing in: 1 week Cleanse incision/area with: Soap & Water and Keep Dressing Clean & Dry Follow Up Care Please Follow Up With: Fela Li DO When: 2-week and 6-week visit Test Results: Test results from this visit will be discussed in further detail at your follow- up appointment, if applicable. Discharge Plan Admission Admit Date/Time: 07/11/22 17:00 Primary Reason for Your Visit: section Attending Provider: Fela Li Primary Care Provider: Care PhysicianMikayla Primary Discharge Orders/Prescriptions Prescriptions: New oxycodone 5 mg Tablet 5 mg PO Q6H PRN (Reason: pain) 4 Days Qty: 20 0RF Continued Prenatabs FA 29-1 mg Tablet 1 tab PO DAILY fluoxetine 20 mg Capsule 20 mg PO DAILY Referrals / Follow Up: Care PhysicianMikayla Primary [Primary Care Provider] - Disposition Disposition (needs filled in before D/C Order can be placed): Home, Self Care
[2022-07-13] MEDS: Senna/Docusate Sodium 1 Tablet PO (10:45)
[2022-07-13 11:32] VITALS: BP 123/71; PULSE 62; RESP 16; TEMP 36.6; O2SAT 97
--- NOTE | 2022-07-13 12:18 | CM.ED ---
SW Note Referral Source: WP SW Referral Reason: History of anxiety and depression. On Fluoxetine. SW spoke to RN Blake who was caring for the MOB and nb who indicated parents are doing well with the nb. Blake reports no concerns. SHERRY gave verbal consent for this health underwriter to speak to her in the presence of the FOB. Mom: Pieter PNC: Dr. Fela Li NB born at 38 + 2 Control: IUD vs NuvaRing Baby: Ryley Mcgarry : [birth year] Apgars: 8,9 Weight: 7lbs 6 ounces Heat And Frost Insulator Helper: Dr. Espana SHERRY is breast feeding the nb and reports it is going well. SHERRY's other children: Bernardo, age 17 months Housing: SHERRY, EV and the 2 children reside in [place], 2 [place]/4 hours away. SHERRY reports that they have adequate housing. SHERRY said that they came to [facility] as she had her first child here and felt like she was treated like a cooper. MOB said that the hospital in [place] she did not like. MOB said that the FOKei family resides in [place] so they come up here and they eventually plan to buy a house locally. They are currently renting a house. Transportation: SHERRY reports access to transportation and can drive once she is medically released from her MD for driving. Supplies: SHERRY reports she has a carseat, bassinet, crib, and all supplies. NB was appropriately wrapped and appeared to have all needed supplies. Supports; SHERRY reports that her support is her and her mother, who resides in [place]. Education Level: Patient graduated from high school. No learning issues or delays. Patient attended college but did not graduate. 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 FOB: Brandon Time Together: MOB and FOKei have been together since 2019 and in 2020. Involved with the nb: Yes Employer: EV is employed at [employer] as a heavy machine operation. EV is father to SHERRY's child, Bernardo. No other children. FOB MH/AOD/Domestic Violence: FOB denied Maternal MH History: SHERRY is currently on Prozac and plans to continue with the Prozac. SHERRY began to take Prozac as she was having panic attacks at 12 weeks so she is taking the prescribed dosage of 20mg for panic attacks. MOB said that Prozac works so much better than Zoloft. MOB said that her relationship are better and she feels better about herself when she is on Prozac. MOB denied SI/HI, currently or in the past. MOB and FOB were educated on PPD, Shaken Baby and Safe Sleeping. MOB denied any alcohol, drugs or tobacco use. CHILANGO provided MOB with resources on PPD and support groups related to PPD and PPA. CHILANGO updated nursing board and also updated the [employer] orders. CHILANGO updated AGUSTIN Lozano. Plan: Home at discharge Rhonda Saldana
== END 2022-07-13 13:35 | disposition home or self-care (01) | DRG 787 ==
LOC: WPOUT 17:10 → WP 07-12 04:59
PROVIDERS: Admitting Provider Student in an Organized Health Care Education/Training Program; Visit Provider Student in an Organized Health Care Education/Training Program
DX: O76 Abnormality in fetal heart rate and rhythm complicating labor and delivery (principal); D62 Acute posthemorrhagic anemia; O99.02 Anemia complicating childbirth; Z3A.38 38 weeks gestation of pregnancy; Z37.0 Single live birth
CPT/HCPCS: 59025; 59050; 85025; 85027; 86850; 86900; 86901; 87426; 99218; J7030; J7120; A4216; G0378; J2405

== ENCOUNTER 2024-08-03 16:35 | Emergency (ER) | payer BC, SELFPAY ==
[2024-08-03 16:36] VITALS: BP 125/76; PULSE 80; RESP 16; TEMP 36; O2SAT 99; BMI 38.0
[2024-08-03 16:52] LABS: Mucous, Urine 0 SEEN /hpf (<or=2+)
[2024-08-03 16:57] LABS: Absolute Lymphocyte Count 3.01 X10^3/uL (0.83-4.51); Absolute Neutrophil Count 7.6 X10^3/uL (2.0-7.7); Basophil# 0.04 X10^3/uL; Basophil% 0.4 % (0-1); Eosinophil# 0.07 X10^3/uL; Eosinophils% 0.6 % (0-5); Hematocrit 46.9 % (37-47); Hemoglobin 15.4 g/dL (12.0-15.0); Lymphocyte # 3.01 X10^3/ul (0.83-4.51); Lymphocyte % 26.5 % (19-41); Mean Corp Hgb Conc 32.8 g/dL (32-36); Mean Corpuscular Hgb 29.2 pg (27.0-32.0); Mean Platelet Vol. 10.2 fl (6.2-12.0); Monocyte# 0.59 X10^3/uL; Monocyte% 5.2 % (0-10); NRBC Flagged by Analyzer 0 % (0-5); Platelet Count 304 K/mm3 (150-450); RBC Distribution Width CV 12.4 % (11.6-14.6); RBC Distribution Width SD 40.6 fl (35.1-43.9); Red Blood Count 5.27 M/mm3 (4.2-5.4); White Blood Count 11.3 K/mm3 (4.4-11.0)
[2024-08-03 17:02] LABS: Glucose, Dipstick Normal (Normal); Ketone-Dipstick Negative (Negative); Leukocyte Esterase-Dipstick Negative /ul (Negative); Nitrite-Dipstick Negative (Negative); Occult Blood-Urine 150 /ul (Negative); Protein-Dipstick Negative (Negative); Urine Bilirubin Dipstick Negative (Negative); Urine Clarity Clear (Clear); Urine Urobilinogen Normal (Normal)
[2024-08-03 17:10] LABS: Internal QC Validated? YES +Cl - CLEAR BKGD; Pregnancy, Serum, hCG Quali. NEGATIVE Negative
[2024-08-03 17:12] LABS: Anion Gap 6 (5-15); BUN 20 mg/dL (7-18); Calcium,Total 9.4 mg/dL (8.5-10.1); Chloride 108 mmol/L (98-107); Creatinine, Serum 0.74 mg/dL (0.55-1.02); EST Glomerular Filtration Rate 103 mL/min (>60); Est Glom Filt Rate - Afr Amer 124 mL/min (>60); Estimated Creatinine Clearance 136.34 ml/min; Glucose 90 mg/dL (74-106); Potassium 3.9 mmol/L (3.5-5.1); Sodium Level 138 mmol/L (136-145)
[2024-08-03 17:12] LABS: Color, Urine SEE COMMENT BELOW (Yellow)
[2024-08-03 17:14] LABS: Bacteria RARE /hpf (None Seen); Red Blood Cells-Urine 0-5 SEEN /hpf (0-5); Squamous Epithelial Cells - UA 0-5 SEEN /hpf (5-10); White Blood Cells 0-5 SEEN /hpf (0-5)
[2024-08-03 18:36] VITALS: BP 122/85; PULSE 71; RESP 16; O2SAT 98
--- NOTE | 2024-08-03 19:13 | CT_ITS ---
STUDY: CT ABDOMEN AND PELVIS WITH CONTRAST REASON FOR EXAM: Female, 23 years old. Abdominal pain RADIATION DOSAGE (If Supplied By Facility): = ( 16.18 ) mGy, DLP = ( 1252.40 ) mGycm TECHNIQUE: Transaxial images were obtained from the dome of the diaphragm to the symphysis pubis without oral contrast. IV 100mL Isovue-300 was administered. Sagittal and coronal images were reconstructed. Individualized dose optimization techniques were used for this CT. COMPARISON: None. FINDINGS: The visualized lung bases are unremarkable. The visualized portions of the heart are within normal limits. Normal liver. Normal gallbladder and extrahepatic biliary system. Normal spleen. Normal pancreas. Normal bilateral adrenal glands. Normal right kidney. Normal left kidney. Evaluation of the GI tract is limited by absence of oral contrast. Cannot exclude stomach wall thickening. No dilated loops of bowel or evidence for obstruction. Cannot exclude segmental thickening of the kilpatrick of the small or large bowel. Cannot exclude enteritis or colitis. Moderate diffuse fecal retention. Appendix within normal limits. Normal abdominal aorta. Normal inferior vena cava. Normal retroperitoneum. Normal urinary bladder. Normal appearance of the uterus. Menstrual cup seen in the vagina. Normal abdominal wall. Normal osseous structures. CT/Abdomen/Pelvis W IV Cont ONLY IMPRESSION: No definite acute or significant abnormality seen. Electronically Signed: Christopher Cameron MD at 19:42 EDT ,
--- NOTE | 2024-08-03 19:16 | EDS_ITS ---
HPI HPI - GI History of Present Illness Chief Complaint: Abd Pain Informant: patient Abdominal Pain/Flank Pain Onset: Days (3) Context: Gradual Onset Timing: Intermittent Quality: Sharp and Stabbing Location: RLQ Worsened by: - (Activity and laying completely flat) Relieved by: - (Sitting upright) Nausea/Vomiting/Emesis GI Symptom: Positive for Nausea; Negative for Vomiting Diarrhea/Melena/Hematochezia GI Symptom: Negative for Diarrhea, Melena or Hematochezia Associated Symptoms Associated Symptoms: Negative for Dysuria, Frequency or Hematuria Narrative Narrative: Patient presents with abdominal pain that has been getting progressively worse over the past 3 days. Patient states it started in her right lower back and is now in the right lower abdomen. Patient describes the pain as sharp and stabbing. Patient states it is intermittent. Patient states it is worse with activity but is also worse with laying completely flat. Patient states it is better when she is able to sit up. Patient denies any fevers but admits to some subjective chills. Patient admits to some nausea but denies any vomiting. Patient admits to those slightly decreased appetite but states she is hungry. Patient denies any vomiting or diarrhea. Patient denies any urinary complaints. Patient denies any abnormal vaginal bleeding or discharge. [facility] Medical History (Updated 08/03/24 @ 19:[address] Guillermo Sparks DO) Anxiety Home Medications ?Medication ?Instructions ?Recorded ?Last Taken ?Type fluoxetine 20 mg capsule 20 mg PO DAILY anxiety 07/09/22 07/10/22 17:00 History vits,calcium no.78-iron 1 tab PO DAILY 07/09/22 07/10/22 19:00 History fumarate-folic acid 29 mg-1 mg tablet (Prenatabs FA) oxycodone 5 mg tablet 5 mg PO Q6H PRN pain 4 days #20 07/13/22 Unknown Rx tabs Allergy/AdvReac Type Severity Reaction Status Date / Time No Known Allergies Allergy Verified 08/03/24 16:36 Surgical History (Updated 08/03/24 @ 19:[address] Guillermo Sparks DO) Hx of tonsillectomy History of section Social History Smoking Status: Never smoker ROS ROS ED Constitutional Constitutional ED: Reports chills; Denies fever(s) Eyes Eyes: Denies blurry vision or change in vision ENT ENT ED: Denies rhinorrhea or sore throat Cardiovascular Cardiovascular: Denies chest pain or palpitations Respiratory/Chest Respiratory/Chest: Denies cough or dyspnea Gastrointestinal Gastrointestinal: Reports abdominal pain and nausea; Denies constipation, diarrhea, melena or vomiting Genitourinary Genitourinary ED: Denies dysuria or hematuria Musculoskeletal Musculoskeletal: Reports back pain; Denies neck pain Integumentary Denies abscess or rash Neurologic Neurologic: Denies headache(s) or weakness Allergic/Immunologic Allergic/Immunologic ED: Denies mouth swelling or urticaria EXAM Physical Exam Const Vital Signs: 08/03/24 16:36 08/03/24 18:36 Temperature 96.8 F L Temperature Source Temporal Pulse Rate 80 71 Respiratory Rate 16 16 Blood Pressure 125/76 H 122/85 H Blood Pressure Mean 92 97 Pulse Ox 99 98 Oxygen Delivery Method Room Air Positive well nourished and well developed General Appearance ED: well developed and NAD HEENT Reports moist mucous membranes Neck supple and no JVD Resp normal respiratory effort and clear to auscultation bilaterally Cardio regular rate and regular rhythm GI non-distended Palpation: soft and tender RLQ; Negative for guarding or rebound tenderness present Back/Spine no CVA tenderness Neuro CN's II-XII intact bilaterally, moves all extremities and no sensory deficits noted Sensorium / Orientation: alert Motor Exam: strength 5/5 throughout Psych mental status grossly normal MDM MDM MDM Narrative Medical decision making narrative: Differential diagnosis includes appendicitis, ovarian cyst, urinary tract infection, ureteral calculus, diverticulitis, and mesenteric adenitis. CBC will be obtained to assess for leukocytosis and anemia. Basic metabolic profile will be obtained to assess for electrolyte abnormality and renal function. U rinalysis will be obtained to assess for urinary tract infection and hematuria. Serum hCG will be obtained to assess for . CT scan of the abdomen pelvis will be obtained to assess for appendicitis and ureteral calculus. Lab Data Attestation: I reviewed the patient's lab results. Lab results narrative: CBC was reviewed. There is a slight leukocytosis of 11.3. The remainder is within normal limits. Basic metabolic profile was reviewed and was within normal limits. Serum hCG was reviewed and was negative. Urinalysis was reviewed. There is no evidence of urinary tract infection or hematuria. Labs: Laboratory Results - last 24 hr 08/03/24 08/03/24 16:43 16:50 WBC 11.3 H RBC 5.27 Hgb 15.4 H Hct 46.9 MCV 89.0 MCH 29.2 MCHC 32.8 RDW Std Deviation 40.6 RDW Coeff of [place] 12.4 Plt Count 304 MPV 10.2 Immature Gran % (Auto) 0.300 Neut % (Auto) 67.0 Lymph % (Auto) 26.5 Page % (Auto) 5.2 Eos % (Auto) 0.6 Baso % (Auto) 0.4 Absolute Neuts (auto) 7.6 Absolute Lymphs (auto) 3.01 Nucleated RBC % 0 Sodium 138 Potassium 3.9 Chloride 108 H Carbon Dioxide 24.0 Anion Gap 6 BUN 20 H Creatinine 0.74 Estim Creat Clear Calc 136.34 Est GFR (MDRD) Af Amer 124 Est GFR (MDRD) Non-Af 103 BUN/Creatinine Ratio 27.0 H Glucose 90 Calcium 9.4 Serum , Qual NEGATIVE Urine Color SEE COMMENT BELOW Urine Clarity Clear Urine pH 6.0 Ur Specific [place] 1.010 Urine Protein Negative Urine Glucose (UA) Normal Urine Ketones Negative Urine Occult Blood 150 H Urine Nitrite Negative Urine Bilirubin Negative Urine Urobilinogen Normal Ur Leukocyte Esterase Negative Urine RBC 0-5 SEEN Urine WBC 0-5 SEEN Ur Squamous Epith Cells 0-5 SEEN Urine Bacteria RARE Urine Mucus 0 SEEN Radiography Diagnostic Testing: Clinical Impression(s) from Imaging Studies Abdomen/Pelvis CT 08/03/24 19:13 IMPRESSION: No definite acute or significant abnormality seen. Electronically Signed: Christopher Cameron MD at 19:42 EDT , CT scan of the abdomen pelvis was obtained. There is no acute abnormality noted. There is no evidence of appendicitis. There is moderate diffuse fecal retention. There is no free fluid or free air. This was interpreted by the radiologist and was also independently reviewed by myself. Treatment and Re-Evaluation :: Patient was advised of her findings. Patient was instructed to follow-up with her primary care physician in 5 to 7 days. Patient was instructed to return if worse in any way. Patient understood and was agreeable with the plan. All questions were answered. Discharge Plan Triage Chief Complaint: Abd Pain ED Provider: Guillermo Sparks Dx/Rx/DC Orders Clinical Impression: Abdominal pain, right lower quadrant, Low back pain Instructions: ED Abdominal Pain Unkn Cause Fem Prescriptions: No Action Prenatabs FA 29-1 mg Tablet 1 tab PO DAILY fluoxetine 20 mg Capsule 20 mg PO DAILY oxycodone 5 mg Tablet 5 mg PO Q6H PRN (Reason: pain) 4 Days Qty: 20 0RF Primary Care Provider: Angelika Godoy Referrals: Angelika Godoy DO [Primary Care Provider] - 5-7 Days Care Physician,No Primary [Non-Staff] - Print Language: Hebrew Disposition Disposition: Home, Self Care
== END 2024-08-03 20:02 | disposition home or self-care (01) ==
PROVIDERS: Emergency Provider Emergency Medicine; PCP Family Medicine; Visit Provider Emergency Medicine
DX: R10.31 Right lower quadrant pain (principal); M54.50 Low back pain, unspecified; R11.0 Nausea; Z79.899 Other long term (current) drug therapy
CPT/HCPCS: 74177; 80048; 81001; 84703; 85025; 99283; Q9967; A4216